=== PATIENT | female | born 1955 ===

== ENCOUNTER 2017-11-04 09:21 | Emergency (ER) | payer BC ==
[2017-11-04 09:49] VITALS: BP 115/60
--- NOTE | 2017-11-04 10:04 | UC ---
Skin Complaint HPI - HPI Summary HPI Summary: Tic bite to back of neck at hair line---removed by a co-worker yesterday---may have attached 1-3 days ago - History of Current Complaint Chief Complaint: UCBiteInjury Time Seen by Provider: 11/04/17 09:54 Stated Complaint: TICK BITE Hx Obtained From: Patient ?: No Onset/Duration: Sudden Onset, Lasting Days - 1-3 Skin Exposure Onset/Duration: Days Ago Timing: Constant Pain Intensity: 0 Pain Scale Used: 0-10 Numeric Location: Discrete - back of neck at hair line Aggravating Factor(s): Nothing Alleviating Factor(s): Nothing Associated Signs & Symptoms: Positive: Negative Related History: Possible Reaction to: Insect - Allergy/Home Medications Allergies/Adverse Reactions: Allergies Allergy/AdvReac Type Severity Reaction Status Date / Time No Known Allergies Allergy Verified 11/04/17 09:40 Home Medications: Home Medications Anastrozole (NF) [Arimidex (NF)] 1 mg PO DAILY 11/04/17 [History Confirmed 11/04] Calcium Carbonate/Vitamin D3 [Calcium 500 + Vit D Caplet] 1 each PO DAILY [History Confirmed 11/04/17] Glimepiride (NF) 4 mg PO BID 11/04/17 [History Confirmed 11/04/17] Omeprazole CAP* [Prilosec CAP* 20 MG] 20 mg PO DAILY 11/04/17 [History Confirmed 11/04/17] Ramipril CAP* [Altace CAP*] 5 mg PO DAILY 11/04/17 [History Confirmed 11/04/17] Rosuvastatin (NF) [Crestor (NF)] 5 mg PO DAILY 11/04/17 [History Confirmed 11/04] metFORMIN* [Glucophage 500 MG TAB *] 500 mg PO DAILY 11/04/17 [History Confirmed 11/04/17] Review of Systems Constitutional: Negative Skin: Other - 4 mm erythema Eyes: Negative ENT: Negative Respiratory: Negative Cardiovascular: Negative Gastrointestinal: Negative Genitourinary: Negative Motor: Negative Neurovascular: Negative Musculoskeletal: Negative Neurological: Negative Psychological: Negative Is Patient Immunocompromised?: No All Other Systems Reviewed And Are Negative: Yes PMH/Surg Hx/FS Hx/Imm Hx Previously Healthy: No Endocrine History: Diabetes, Dyslipidemia Cardiovascular History: Hypertension GI/ History: Gastroesophageal Reflux - Surgical History Surgical History: Yes Surgery Procedure, Year, and Place: Bariatric Sleeve, 2014, [facility]; Right Breast Lumpectomy, 2013, [place]; Complete Hysterectomy, 2006, [place] - Family History Known Family History: Positive: None - Social History Occupation: Employed Full-time Lives: With Family Alcohol Use: Occasionally Substance Use Type: None Smoking Status (MU): Former Smoker Length of Time of Smoking/Using Tobacco: ~1/3 PPD x 30 Years When Did the Patient Quit Smoking/Using Tobacco: 06/2017 Physical Exam Triage Information Reviewed: Yes Appearance: Well-Appearing, No Pain Distress, Well-Nourished Vital Signs: Initial Vital Signs Temp 98.4 F 11/04/17 09:39 Pulse 68 11/04/17 09:39 Resp 16 11/04/17 09:39 BP 115/60 11/04/17 09:39 Pulse Ox 99 11/04/17 09:39 Vital Signs Reviewed: Yes Eye Exam: Normal Eyes: Positive: Conjunctiva Clear ENT Exam: Normal ENT: Positive: Normal ENT inspection, Hearing grossly normal, Pharynx normal, TMs normal. Negative: Nasal congestion, Trismus, Muffled voice, Hoarse voice, Dental tenderness, Sinus tenderness Dental Exam: Normal Neck exam: Normal Neck: Positive: Supple, No Lymphadenopathy Respiratory Exam: Normal Respiratory: Positive: Chest non-tender, No respiratory distress, No accessory muscle use Cardiovascular Exam: Normal Cardiovascular: Positive: RRR, Pulses Normal, Brisk Capillary Refill Musculoskeletal Exam: Normal Musculoskeletal: Positive: Strength Intact, ROM Intact, No Edema Neurological Exam: Normal Neurological: Positive: Alert, Muscle Tone Normal Psychological Exam: Normal Skin Exam: Other - 4 mm erythematous area on back of neck and hairline Skin: Positive: Other Course/Dx - Course Course Of Treatment: Supplement water wash Tiffany triple antibiotic may be applied daily. Doxycycline 200 mg by mouth 1 dose is patient's not sure the exact date of attachment could benefit 3 days ago. Follow with PCP for any signs and symptoms of Lyme and those were reviewed with patient - Diagnoses Provider Diagnoses: Tick expose with Lype PEP Discharge - Sign-Out/Discharge Documenting (check all that apply): Discharge/Admit/Transfer - Discharge Plan Condition: Stable Disposition: HOME Prescriptions: DOXYcycline CAP(*) [DOXYcycline 100MG CAP(*)] 200 mg PO DAILY #2 cap Patient Education Materials: Tick Bite (ED) Referrals: Amanda Garcia [Primary Care Provider] - If Needed - Billing Disposition and Condition Condition: STABLE Disposition: HOME
== END 2017-11-04 10:14 | disposition home or self-care (01) ==
LOC: UCCORT 09:21
DX: S10.86XA Insect bite of other specified part of neck, initial encounter (principal); W57.XXXA Bitten or stung by nonvenomous insect and other nonvenomous arthropods, initial encounter; Y92.9 Unspecified place or not applicable; Z87.891 Personal history of nicotine dependence
CPT/HCPCS: 99202; G0463